=== PATIENT | female | born 1990 | race Hispanic/Latino ===

== ENCOUNTER → 2024-03-11 | Day surgery (SDC) | payer BC ==
[2024-03-07 10:47] LABS: HEMATOCRIT 42.6 % (34.2-44.1)
[~2024-03-11] MED LIST: ACETAMINOPHEN 1000 MG/100 ML 100 ML IV ONE; BUPIVACAINE HCL 0.5% INJ 30 ML VIAL INJ ONE; DEXAMETHASONE SOD PHOS INJ 4 MG/ML SDV ONE; FAMOTIDINE 20 MG/2 ML VIAL IV ONE; FENTANYL CITRATE/PF 100MCG/2 ML INJ ONE; GLYCOPYRROLATE INJ 0.2 MG/ML VIAL ONE; HYDROCODONE/APAP 7.5MG-325MG 1 EA TAB ONE; HYDROMORPHONE 1MG/1ML INJ ONE; LIDOCAINE HCL 2% LOCAL INJ 5 ML SDV VIAL INJ ONE; METOCLOPRAMIDE HCL 10 MG/2ML VIAL ONE; MIDAZOLAM HCL 2 MG/2 ML VIAL ONE; NEOSTIGMINE 1 MG/ML 10ML VIAL ONE; ONDANSETRON HCL 4 MG ORAL DISINTEGRATING TAB ONE; ONDANSETRON HCL INJ 2MG/ML 2ML 2 MG/ML VIAL ONE; PANTOPRAZOLE SO40 MG PO; PROPOFOL IV EMULSION 10 MG/ML 20 ML VIAL ONE; SCOPOLAMINE 1 MG PATCH ONE; SEVOFLURANE INHAL SOLN 250 ML PEN BTL ONE; ULTRAM 50MG50 MG PO
[2024-03-11] MEDS: CEFAZOLIN SODIUM 2 GM ONE (07:11)
[2024-03-11] MEDS: LACTATED RINGER'S 1,000 ML ONE (07:11)
[2024-03-11 10:04] VITALS: TEMP 97.8
[2024-03-11] MEDS: FENTANYL CITRATE/PF 100MCG/2 ML INJ IV ONE ×2 (10:25→11:00)
[2024-03-11] MEDS: ONDANSETRON HCL INJ 2MG/ML 2ML 2 MG/ML VIAL IV ONE (10:52)
[2024-03-11] MEDS: METOCLOPRAMIDE HCL 10 MG/2ML VIAL IV ONE (11:10)
[2024-03-11] MEDS: HYDROCODONE/APAP 7.5MG-325MG 1 EA TAB PO ONE (11:27)
[2024-03-11 11:45] VITALS: BP 118/68; PULSE 70; RESP 14; O2SAT 99
== END | disposition home or self-care (01) ==
LOC: OR 06:51
PROVIDERS: ATTEND Surgery
DX: K80.12 Calculus of gallbladder with acute and chronic cholecystitis without obstruction (principal); K44.9 Diaphragmatic hernia without obstruction or gangrene; F17.290 Nicotine dependence, other tobacco product, uncomplicated; L40.9 Psoriasis, unspecified; Z01.812 Encounter for preprocedural laboratory examination; Z79.899 Other long term (current) drug therapy
CPT/HCPCS: 36415; 47562; 81025 ×2; 85014; 85018; 88304; J0131; J1100; J1170; J2001; J2250; J2405; J2704; J2710; J2765; J3010; J7121; Q0162